=== PATIENT | male | born 1995 | race Two or more races ===

== ENCOUNTER 2023-05-23 15:54 | Emergency (ER) | payer MEDICAID, OTHER ==
[~2023-05-23] VITALS: Ht 167.6 cm; Wt 75.5 kg
[2023-05-23 18:50] VITALS: BP 102/65; PULSE 74; RESP 14; TEMP 98.9; O2SAT 98
[2023-05-23] MEDS ORDERED: CYCL-611 PO ×2 (20:29→20:30)
[2023-05-23] MEDS ORDERED: IBUP1TAB5 PO ×2 (20:29→20:30)
[2023-05-23] MEDS ORDERED: HYDR-4902 PO (20:29)
[2023-05-23] MEDS ORDERED: HYDROcodone-ACET 5/325MG TAB PO ONE (20:45)
== END 2023-05-23 21:19 | disposition home or self-care (01) ==
LOC: ER 15:54
DX: S33.5XXA Sprain of ligaments of lumbar spine, initial encounter (principal); S13.8XXA Sprain of joints and ligaments of other parts of neck, initial encounter; S00.03XA Contusion of scalp, initial encounter; Z79.1 Long term (current) use of non-steroidal anti-inflammatories (NSAID); Z79.899 Other long term (current) drug therapy; V89.2XXA Person injured in unspecified motor-vehicle accident, traffic, initial encounter; Y93.I9 Activity, other involving external motion; Y92.89 Other specified places as the place of occurrence of the external cause; Y99.8 Other external cause status
CPT/HCPCS: 70450; 72100; 72125

== ENCOUNTER 2023-09-11 22:20 | Emergency (ER) | payer MEDICAID ==
[~2023-09-11] VITALS: Ht 170.2 cm; Wt 81.7 kg
[~2023-09-11 22:20] MED LIST: CYCL-611 PO; IBUP1TAB5 PO
[2023-09-11 22:38] VITALS: BP 127/88; PULSE 72; RESP 16; O2SAT 99
[2023-09-11 23:16] LABS: COVID19 ANTIGEN SOFIA FIA NEGATIVE (NEGATIVE); Rapid Influenza A Negative (Negative); Rapid Influenza B Negative (Negative)
[2023-09-12] MEDS ORDERED: PRED20TA2 PO (00:45)
[2023-09-12] MEDS ORDERED: ACET500T58 PO (00:45)
== END 2023-09-12 00:58 | disposition home or self-care (01) ==
LOC: ER 22:20
DX: J02.8 Acute pharyngitis due to other specified organisms (principal); Z20.822 Contact with and (suspected) exposure to COVID-19; Z79.899 Other long term (current) drug therapy
CPT/HCPCS: 36415; 87426; 87804